=== PATIENT | female | born 1965 | race Caucasian/White ===

== ENCOUNTER 2018-10-28 10:00 | Day surgery (SDC) | payer MEDICARE, OTHER ==
[2018-10-28] MEDS ORDERED: Marcaine 0.5% SDV 10 ML IJ ONE (10:01)
[2018-10-28] MEDS ORDERED: Depo-Medrol 40 MG/ML IM ONE (10:01)
[2018-10-28] MEDS ORDERED: DIPRIVAN 200 MG/20 ML IV ONE (10:01)
[2018-10-28] MEDS ORDERED: Ketamine HCl 50 MG/ML IJ ONE (10:01)
[2018-10-28] MEDS ORDERED: Xylocaine 1% Vial 30 ML PF IJ ONE (10:01)
[2018-10-28] MEDS ORDERED: Lactated Ringers 1,000 ML IV ONE (14:24)
--- NOTE | 2018-10-28 16:17 | XRAY ---
5 seconds of fluoroscopy was used in surgery for left knee intra-articular injection.
--- NOTE | 2018-10-28 16:26 | XRAY ---
Indication: Left knee injection. Intraoperative fluoroscopy was provided for 5 seconds. Single digital spot image submitted for interpretation demonstrates anterior needle tip projecting in the intercondylar notch. Small amount of contrast injected for needle tip placement. Correlate with intraoperative findings/report.
== END 2018-10-28 12:22 | disposition home or self-care (01) ==
LOC: SDC-PAIN 10:00
PROVIDERS: ATTEND Psychiatry & Neurology Pain Medicine
DX: M17.12 Unilateral primary osteoarthritis, left knee (principal); Z79.899 Other long term (current) drug therapy; M06.9 Rheumatoid arthritis, unspecified; F41.8 Other specified anxiety disorders
CPT/HCPCS: 20611; 73560; 77002; J1030; J2001; J2704; Q9966